=== PATIENT | male | born 1995 | race African-American/Black ===

== ENCOUNTER 2020-02-05 21:53 | Emergency (ER) | payer OTHER ==
[~2020-02-05] VITALS: Ht 185.4 cm; Wt 68.0 kg
[2020-02-05] MEDS ORDERED: POLYMYXIN B/TMP10 ML EA. EYE (22:10)
[2020-02-05 22:59] VITALS: BP 138/50
== END 2020-02-05 23:00 | disposition home or self-care (01) ==
LOC: ER 21:53
DX: S90.861A Insect bite (nonvenomous), right foot, initial encounter (principal); W57.XXXA Bitten or stung by nonvenomous insect and other nonvenomous arthropods, initial encounter; Y93.89 Activity, other specified; Y92.89 Other specified places as the place of occurrence of the external cause; Y99.8 Other external cause status